=== PATIENT | male | born 1955 | race Caucasian/White ===

== ENCOUNTER → 2016-12-02 | Outpatient (CLI) | payer MEDICARE, OTHER ==
[~2016-12-02] MED LIST: ACETAMINOPHEN; ACETAZOLAMIDE250 MG PO; ACID REDUCER20 MG PO; AKWA TEARS; ALPHAGAN P10 ML OP; ALPHAGAN P10 ML OU; ASACOL400 MG PO; ASPIRIN; ASPIRIN PEG; ASPIRIN PO; ASPIRIN81 M2 PO; ATIVAN PEG; BACTRIM DS TABL1 TAB PO; BONIVA150 MG PO; BRIMONIDINE TAR10 ML OU; CALCIUM + D SO1 EACH PO; CALCIUM CARB; CALCIUM500 M1 PO; CANASA1000 MG/S1; CENTRUM240 ML; CERTA-VITE; CERTAGEN PEG; CLONIDINE; COLACE; COLACE PO; COSOPT EYE DROPS5 ML OP; COSOPT EYE DROPS5 ML OU; DDAVP0.1 MG PO; DDAVP0.2 MG PEG; DEPAKOTE ER; DEPAKOTE PO; DESMOPRESSIN A0.1 M1 PO; DIASTAT ACUDIAL1 KIT; DIASTAT10 MG PR; DIASTAT2.5 MG PR; DOCUSATE LIQUID; ENALAPRIL MALE2.5 MG PO; ENTEX PSE1 CAP.SR .; FERROUS SU220 MG/53 PO; FIBER-STAT15 GM/30 M PO; FLUOCINOLONE AC60 ML; GABAPENTIN300 M2 PO; GENTAK5 M1 OU; GLIPIZIDE ER2.5 MG PO; GLUCAGEN1 MG SUBQ; GLUCAGEN1 MG/KIT SUBQ; GLUCAGON W/DILUE1 MG IM; GLUCOTROL GT; HIBICLENS 4% L120 ML; HYTRIN; KEFLEX PO; KEPPRA; KEPPRA500 M2 PO; KEPPRA750 MG; KEPPRA750 MG PEG; KEPPRA750 MG PO; LANTUS100 U/ML; LANTUS100 U/ML INJ; LANTUS100 U/ML SQ; LANTUS100 U/ML SUBQ; LANTUS100 UNITS/ SUBQ; LATANOPROST2.5 ML OU; LEVAQUIN GT; LEVOTHYROXINE100 MCG PO; LISINOPRIL PO; LOVASTATIN20 M2 PO; LUBRIFRESH PM OP; MAGIC BUTT CR; METFORMIN PO; MIRALAX17 GM DOB; MIRALAX17 GM PO; MIRALAX255 GM PO; MYLANTA400 MG PEG; NIZORAL120 ML; NOVOLIN R SUBQ; NOVOLIN R100 UNITS/; NOVOLOG100 U/ML SUBQ; OMEGA 3 FISH OI1 CAP PO; PAXIL; PENTASA250 MG PO; PEPCID PO; PERIDEX480 ML PO; PREVACID PEG; PREVACID PO; PRILOSEC; ROWEEPRA500 MG PO; SENNA8.6 M1 PO; SENNA8.8 MG/5 M GT; SILACE60 MG/15 M PO; SYNTHROID; SYNTHROID PEG; SYNTHROID PO; TEARS AGAIN OU; THERA; THERAPEUTIC SH177 ML TOP; TIMOPTIC5 ML OU; TOBRADEX EYE DRO5 ML AD; TRIDESILON 0.0515 G2 TOP; TRIPLE ANTIBI1 UDPK1 TP; TRIPLE ANTIBIO1 EACH TOP; UTI-STAT L3875 MG/31 PO; VASOTEC2.5 MG DOB; VITAMIN C PEG; VITAMIN D1000 UNI1 PO; VITAMIN D31000 UNIT PO; XALATAN OP; ZOSYN IV; ZYRTEC; ZYVOX PO; [UNRECOGNIZED DRUG - OTHER] OU; [UNRECOGNIZED DRUG - OTHER] TP
--- NOTE | ~2016-12-02 | CT57 ---
[facility] A Service of [facility] RADIOLOGY TEXT RESULTS PATIENT: PRABHU AGEE LOCATION: [facility] : 53 UNIT #: [id number] AGE: [address]: SHARONA BALLARD SEX: M ORDER DR: [id number] [facility] [address] [place], [place] [address] [id number] O MR#: [id number] [facility] #: [id number] NAME: PRABHU AGEE : 1955 SEX: M STUDY DATE/TIME: 12/02/2016 14:02 [facility] RO[facility]: STUDY DESCRIPTION: CT Chest Wo Cont Attending Physician: Sharona Ballard Referring Physician: Sharona Ballard Ordering Physician: Harlan Leigh Sr., M.D. Primary Care Physician: Harlan Leigh Sr., M.D. MEDICAL IMAGING REPORT This report is preliminary unless electronic signature is present EXAM CT chest without contrast, 12/02/2016 HISTORY Right chest mass. Hypertension. Dizziness. COMPARISON No prior CT chest for comparison at this institution. PROCEDURE 5 mL axial images from the thoracic inlet through the upper abdomen without contrast. Sagittal and coronal reformatted images were obtained. TECHNIQUE This CT exam was performed with one or more of the following radiation dose reduction techniques: automatic exposure control, adjustment of mA and/or kV according to patient size, and iterative reconstruction. FINDINGS An oval low density lesion is demonstrated within the right pectoral musculature. It lies anterior to the level of the right third rib. This lesion appears predominantly fluid density, and measures 7.4 cm craniocaudal x 4.1 cm AP x 6.6 cm transverse dimension. It is entirely nonspecific. It could represent a sterile or infected fluid collection. Necrotic mass lesion cannot be excluded. Bilateral gynecomastia changes are present. No axillary, supraclavicular, mediastinal or hilar adenopathy is seen. There are no suspicious pulmonary nodules. No lung consolidations. Probable minimal atelectasis in the extreme left lung base. There are benign calcified granulomas changes of the right hilum, right lower lobe and subcarinal regions. Included portions of the upper abdominal organs have an unremarkable STS. [facility] A Service of [facility] RADIOLOGY TEXT RESULTS PATIENT: PRABHU AGEE [id number] 53 UNIT #: [id number] AGE: [address]: SHARONA BALLARD SEX: M ORDER DR: noncontrast appearance. No acute or suspicious-appearing osseous lesions are identified. There are degenerative changes within the spine. IMPRESSION A 7.4 cm x 4.1 cm x 6.6 cm low-density lesion is present within the right chest wall, intimately associated with the pectoral musculature. It lies at the level of the right anterior fourth rib. No osseous abnormality is identified. It is unclear whether this represents benign or malignant etiology. It could represent a necrotic lesion. Alternatively, it could represent either a sterile or infected fluid collection. Further assessment cannot be made without the benefit of IV contrast. It would be easily amendable to ultrasound-guided aspiration or CT-guided aspiration if it would aid in clinical management. Dictated by... Alicia Rayo M.D. THIS IS AN ELECTRONICALLY VERIFIED REPORT Alicia Rayo M.D. at 12/03/2016 2:40 PM STEVE/ish TD: 12/02/2016 21:25 JOB #: [id number] MEDICAL IMAGING REPORT COPY
== END | disposition home or self-care (01) ==
LOC: CCAT 13:09
DX: R22.2 Localized swelling, mass and lump, trunk (principal)
CPT/HCPCS: 71250

== ENCOUNTER → 2016-12-15 | Outpatient (CLI) | payer MEDICARE, OTHER ==
--- NOTE | ~2016-12-15 | US19 ---
[facility] A Service of [facility] RADIOLOGY TEXT RESULTS PATIENT: PRABHU AGEE LOCATION: [facility] : 53 UNIT #: [id number] AGE: [address]: Seferino Ramirez MD SEX: M ORDER DR: [id number] [facility] [place], [place] [address] [id number] O MR#: [id number] Acc #: [id number] NAME: PRABHU AGEE : 1955 SEX: M STUDY DATE/TIME: 12/15/2016 11:09 UNIT: [facility] ROOM: STUDY DESCRIPTION: US Breast Cyst Aspiiration W I Attending Physician: Seferino Ramirez M.D. Referring Physician: Seferino Ramirez M.D. Ordering Physician: Seferino Ramirez M.D. Primary Care Physician: Cheryl Rutherford Aprn MEDICAL IMAGING REPORT This report is preliminary unless electronic signature is present EXAM Ultrasound guided aspiration of a fluid collection in the right breast 12/15/2016 INDICATIONS 61-year-old male who had a chest CT 12/02/2016 demonstrating a fluid collection intimately associated with the right breast. Ultrasound guided cyst aspiration requested for further assessment. FINDINGS The patient's prior CT scan was reviewed. Survey images here in the department confirm the presence of the fluid collection. It was adequately visualized to proceed. Informed consent had been previously obtained from the patient's brother given the patients diminished functional status and inability to provide informed consent independently. The consent form was signed on the chart prior to the procedure. Prior to the procedure a "time-out" protocol was also performed to document patient identity and procedure details. The right breast was prepped and draped in the usual sterile fashion. Maximum sterile-barrier technique appropriate for procedure guidelines was utilized. This included the use of sterile gloves, sterile instruments, and sterile barriers. Local anesthesia was achieved about 4 mL of buffered 1% Lidocaine solution. Thereafter, using ultrasound guidance, an 18-gauge needle was advanced to the margin of the fluid collection. Appropriate new location was documented with ultrasound throughout and images demonstrating appropriate needle placement were saved to the PACS system. Upon entering the fluid collection that measured about 5 x 2.2 x 4.7 cm there was prompt return of thin dark reddish/purple fluid. Approximately 10 mL of fluid was aspirated. The collection was smaller but did not completely resolve. It appeared to have septations within it. At this point an 18-gauge spinal needle was inserted through the same skin entrance site. Appropriate location was documented with ultrasound and [facility] A Service of [facility] RADIOLOGY TEXT RESULTS PATIENT: PRABHU AGEE LOCATION: [facility] : 53 UNIT #: [id number] AGE: [address]: Seferino Ramirez MD SEX: M ORDER DR: images demonstrating appropriate needle placement were saved to the PACS system. The spinal needle was seen to be within the remaining complicated fluid but no additional fluid could be aspirated. At this point the needle was removed and the procedure was concluded. The fluid will be forwarded to the laboratory for further analysis according to the primary care team orders. There were no immediate post procedure complications and the patient tolerated the procedure well. Please see the final cytopathology and laboratory report for further details. IMPRESSION Successful ultrasound-guided aspiration of a complicated cystic mass in the right breast measuring 5.1 x 4.7 x 2.2 cm. About 10 mL of reddish/purple fluid was aspirated and sent to the laboratory for analysis according to the ordering physician orders. No immediate post procedure complications. Please see the final cytology and laboratory report for further details. BIRADS: 4 Suspicious abnormality; biopsy should be considered. Dictated by... Sandeep Baird M.D. THIS IS AN ELECTRONICALLY VERIFIED REPORT Sandeep Baird M.D. at 12/16/2016 10:24 AM Jovan TD: 12/16/2016 08:40 JOB #: [id number] MEDICAL IMAGING REPORT COPY
== END | disposition home or self-care (01) ==
LOC: CWCC 10:22
DX: N60.01 Solitary cyst of right breast (principal)
CPT/HCPCS: 76942; 87070; 87205; 88108; 88305

== ENCOUNTER → 2016-12-21 | Outpatient (CLI) | payer MEDICARE, OTHER ==
--- NOTE | ~2016-12-21 | US5 ---
[facility] A Service of [facility] RADIOLOGY TEXT RESULTS PATIENT: PRABHU AGEE LOCATION: [facility] : 53 UNIT #: [id number] AGE: [address]: Harlan Leigh MD SEX: M ORDER DR: [id number] [facility] [address] [place], [place] [address] [id number] O MR#: [id number] Acc #: [id number] NAME: PRABHU AGEE : 1955 SEX: M STUDY DATE/TIME: 12/21/2016 10:54 UNIT: [facility] ROOM: STUDY DESCRIPTION: US Abdominal Complete Attending Physician: Harlan Leigh Sr., M.D. Referring Physician: Harlan Leigh Sr., M.D. Ordering Physician: Harlan Leigh Sr., M.D. Primary Care Physician: Harlan Leigh Sr., M.D. MEDICAL IMAGING REPORT This report is preliminary unless electronic signature is present EXAM Abdominal ultrasound INDICATIONS Abdominal distension and swelling for the past several months. PROCEDURE Davies-scale and Doppler imaging of the abdomen COMPARISON 12/29/2012 FINDINGS Left kidney measures 8.8 cm. The spleen measures 10.5 cm. Pancreas obscured by bowel gas and not seen. Unremarkable gallbladder. Liver measures 15.2 cm. Common duct measures 3-4 mm. No liver mass is seen by ultrasound. Inferior vena cava is patent. Proximal aorta unremarkable. Mid and distal segments are not seen. IMPRESSION Pancreas in the lwi-by-wdeqwa abdominal aorta are not seen on this study. Otherwise negative abdominal ultrasound with no definite acute findings. Dictated by... Nolna Anton M.D. THIS IS AN ELECTRONICALLY VERIFIED REPORT Nolan Anton M.D. at 12/22/2016 10:02 AM EED/to TD: 12/21/2016 16:18 JOB #: [id number] [facility] A Service of [facility] RADIOLOGY TEXT RESULTS PATIENT: PRABHU AGEE LOCATION: [facility] #: [id number] : 53 UNIT #: [id number] AGE: [address]: Harlan Leigh MD SEX: M ORDER DR: MEDICAL IMAGING REPORT Page 1 of 1 COPY
== END | disposition home or self-care (01) ==
LOC: CGUS 09:57
DX: R60.9 Edema, unspecified (principal)
CPT/HCPCS: 76700

== ENCOUNTER → 2016-12-30 | Outpatient (CLI) | payer MEDICARE, OTHER | END | disposition home or self-care (01) | LOC: CECH 13:51 | DX: R60.0 Localized edema (principal) | CPT/HCPCS: 93306 ==

== ENCOUNTER → 2017-01-20 | Outpatient (CLI) | payer MEDICARE, OTHER | END | disposition home or self-care (01) | LOC: CSSDAY 13:00 | DX: M81.0 Age-related osteoporosis without current pathological fracture (principal) | CPT/HCPCS: 96372; J0897 ==

== ENCOUNTER → 2017-02-12 | Outpatient (CLI) | payer MEDICARE, OTHER ==
--- NOTE | ~2017-02-12 | CT57 ---
[facility] A Service of [facility] RADIOLOGY TEXT RESULTS PATIENT: PRABHU AGEE LOCATION: [facility] : 53 UNIT #: [id number] AGE: [address]: Ever Melo MD SEX: M ORDER DR: [id number] [facility]. [place], [place] [address] [id number] O MR#: [id number] [facility] #: [id number] NAME: PRABHU AGEE : 1955 SEX: M STUDY DATE/TIME: 02/12/2017 10:00 UNIT: [facility] ROOM: STUDY DESCRIPTION: CT Chest Wo Cont Attending Physician: Ever Melo M.D. Referring Physician: Ever Melo M.D. Ordering Physician: Ever Melo M.D. Primary Care Physician: Cheryl Rutherford Aprn MEDICAL IMAGING REPORT This report is preliminary unless electronic signature is present EXAM CT chest, without contrast. HISTORY Right breast mass. This was initially noted in December 2016. Patient subsequently underwent an aspiration. This is a follow-up study. TECHNIQUE Axial CT images were obtained from the thoracic inlet through the dome of the diaphragm. No intravenous contrast material was administered. This CT exam was performed with one or more of the following radiation dose reduction techniques: automatic exposure control, adjustment of mA and/or kV according to patient size, and iterative reconstruction. FINDINGS Previously identified right breast cyst is no longer identified. Patient does have bilateral gynecomastia, right greater than left. The thyroid gland and trachea appear within normal limits. There is a small hiatal hernia. There is no pleural or pericardial effusion. Mediastinal lymph nodes do not appear pathologically enlarged. Patient has 5-mm nodule seen within the right lower lobe, adjacent to the fissure. This was also present on the prior exam from December, and is favored to be benign. No additional pulmonary nodules or masses are seen. Images through the upper abdomen do not demonstrate any acute abnormalities. Review of bony windows demonstrates discogenic degenerative disease. No aggressive osseous abnormalities are seen. IMPRESSION 1. Previously identified right breast mass has been aspirated. I really STS. [facility] A Service of [facility] RADIOLOGY TEXT RESULTS PATIENT: PRABHU AGEE LOCATION: [facility] : 53 UNIT #: [id number] AGE: [address]: Ever Melo MD SEX: M ORDER DR: do not see any residual fluid in this area. The patient is noted to have bilateral gynecomastia, right greater than left. 2. Small hiatal hernia. 3. 5-mm noncalcified pulmonary nodule seen within the right lower lobe, unchanged when compared to the December exam. It is favored to be benign. Dictated by... Opal Bonner M.D. THIS IS AN ELECTRONICALLY VERIFIED REPORT Opal Bonner M.D. at 02/12/2017 4:11 PM KARO/lydia TD: 02/12/2017 13:14 JOB #: [id number] MEDICAL IMAGING REPORT Page 1 of 1 COPY
== END | disposition home or self-care (01) ==
LOC: CCAT 02-09 09:40
DX: N63 Unspecified lump in breast (principal); R91.1 Solitary pulmonary nodule; K44.9 Diaphragmatic hernia without obstruction or gangrene
CPT/HCPCS: 71250

== ENCOUNTER 2017-05-25 08:37 | Inpatient (IN) | payer MEDICARE, OTHER ==
--- NOTE | ~2017-05-25 | CR72 ---
[facility] A Service of [facility] RADIOLOGY TEXT RESULTS PATIENT: PRABHU AGEE LOCATION: [facility]- : 53 UNIT #: [id number] AGE: [address]: Mei Rios MD SEX: M ORDER DR: [id number] [facility] [address] [place], [place] [address] [id number] I MR#: [id number] Acc #: [id number] NAME: PRABHU AGEE. : 1955 SEX: M STUDY DATE/TIME: 05/28/2017 5:52 UNIT: [address] ROOM: [facility] STUDY DESCRIPTION: CR Chest Single View Portable Attending Physician: Mei Rios M.D. Ordering Physician: Graeme Wilcox M.D. Primary Care Physician: Cheryl Rutherford Aprn MEDICAL IMAGING REPORT This report is preliminary unless electronic signature is present EXAM Single view chest INDICATIONS Shortness of air and fever. 3-day duration. COMPARISON STUDIES Single portable AP view of the chest compared to 05/25/2017. FINDINGS Heart mediastinal contours are unchanged. No new pulmonary opacities. No pneumothorax or pleural effusion. IMPRESSION No acute cardiopulmonary findings. No interval change Dictated by... Néstor You M.D. THIS IS AN ELECTRONICALLY VERIFIED REPORT Néstor You M.D. at 05/28/2017 2:52 PM LIZZY/alexy TD: 05/28/2017 14:39 JOB #: [id number] MEDICAL IMAGING REPORT Page 1 of 1 COPY
--- NOTE | ~2017-05-25 | CO ---
Unit #: [id number] #: [id number] Patient: PRABHU MACIAS [id number] [address] [place], [place] [address] [id number] I MR#: [id number] NAME: PRABHU MACIAS. ROOM: 318 Age: 62 Sex: M Admission Date: 05/25/2017 : 1955 Attending Physician: Mei Rios M.D. Primary Care Physician: Cheryl Rutherford Aprn Consultation Date: 05/25/2017 CONSULTATION REPORT REASON FOR CONSULTATION Possible pneumonia. HISTORY OF PRESENT ILLNESS Mr. Macias is a 62-year-old gentleman with profound mental retardation, who resides at [facility]. He apparently had fever and was sent to the emergency room for possible sepsis. Chest x-ray was fairly unremarkable. Strep screen was positive. He currently has saturations which were adequate in the high 90s on room air. He is nonverbal and cannot add to the history. PAST MEDICAL HISTORY Remarkable for profound mental retardation, seizure disorder, diabetes, hypothyroidism, arthritis. He has had a previous MRSA infection, details unclear. MEDICATIONS Per med rec sheet. Lovastatin, Glucophage, MiraLAX, Pentasa, senna, iron, gabapentin, glipizide, Roweepra, Synthroid, calcium, desmopressin, enalapril, Pepcid, insulin, variety of vitamins and eye drops. ALLERGIES Nitrofurantoin, Flagyl, vancomycin, and Reglan. SOCIAL HISTORY Resides at [facility]. FAMILY HISTORY Unobtainable. REVIEW OF SYSTEMS Unobtainable. PHYSICAL EXAMINATION GENERAL: Reveals a patient, who is sitting in the ER in a gurney, in no acute distress. VITAL SIGNS: He is afebrile. Pulse 99, respiratory rate is 20, blood pressure is 130/72. HEENT: Pupils are equal, round, and reactive to light. Sclerae anicteric. Head atraumatic. NECK: Supple. No supraclavicular or cervical adenopathy appreciated. He did not allow good oral exam. CHEST: Equal breath sounds. No wheeze, stridor, or consolidation. Unit #: [id number] #: [id number] Patient: PRABHU MACIAS CARDIAC: Reveals regular rate and rhythm. ABDOMEN: Soft and nontender. EXTREMITIES: Contracted. No definite clubbing, cyanosis, or edema. SKIN: Warm and dry without rash or diaphoresis. PSYCHIATRIC: He is in no distress on room air. DIAGNOSTIC STUDIES LABORATORY RESULTS: BUN 9, creatinine 0.5. White blood cell count is normal at 8.9, hemoglobin 12.2. Strep screen is positive. Urinalysis unremarkable. Blood cultures performed and are pending. IMAGING STUDIES: Chest x-ray; to my review, no acute infiltrates. CARDIOVASCULAR STUDIES: I do not see any EKG. IMPRESSION 1. Strep throat. No definite evidence of pneumonia. 2. Mental retardation with poor database. 3. Multiple medical problems listed above. PLAN I doubt pneumonia. We will continue Rocephin, but discontinue Zyvox and monitor clinically. Thank you very much for allowing me to participate in the care of Mr. Macias. Dictated by... Rayo Sahu M.D. MY/charlene TD: 05/25/2017 17:18 JOB #: [id number] CONSULTATION REPORT Page 1 of 1 X Rayo Sahu MD CONSULTATION REPORT
--- NOTE | ~2017-05-25 | CR72 ---
[facility] A Service of [facility] RADIOLOGY TEXT RESULTS PATIENT: PRABHU AGEE LOCATION: [facility] : 53 UNIT #: [id number] AGE: [address]: Mei Rios MD SEX: M ORDER DR: [id number] [facility] [address]. [place], [place] [address] [id number] I MR#: [id number] Acc #: [id number] NAME: PRABHU AGEE. : 1955 SEX: M STUDY DATE/TIME: [facility] [id number] STUDY DESCRIPTION: CR Chest Single View Portable Attending Physician: Mei Rios M.D. Ordering Physician: Raúl Castro M.D. Primary Care Physician: Cheryl Rutherford Aprn MEDICAL IMAGING REPORT This report is preliminary unless electronic signature is present EXAM Chest portable 05/25/2017 0943 hours CLINICAL HISTORY 62-year-old patient from the [facility]. Facility reports fever and tachycardia this morning. History of diabetes, hypertension, and MRSA infection. COMPARISON CT chest 02/12/2017 and portable chest exam 09/01/2008. FINDINGS Portable upright chest demonstrates low lung volumes. Plate and screw fixators are present in the lower cervical spine. Heart size is within normal limits. There is perihilar and basilar vascular crowding. No definite pneumonia, edema, or effusion seen. IMPRESSION Low lung volume film with perihilar and basilar vascular crowding. No definite pneumonia, edema, or effusion. Dictated by... Courtney Hernandez M.D. THIS IS AN ELECTRONICALLY VERIFIED REPORT Courtney Hernandez M.D. at 05/25/2017 2:35 PM JOSE/judie TD: 05/25/2017 14:12 JOB #: [id number] MEDICAL IMAGING REPORT [facility] A Service [facility] RADIOLOGY TEXT RESULTS PATIENT: PRABHU GAEE LOCATION: [facility] : 53 UNIT #: [id number] AGE: [address]: Mei Rios MD SEX: M ORDER DR: Page 1 of 1 COPY
--- NOTE | ~2017-05-25 | DS ---
Unit #: [id number] #: [id number] Patient: PRABHU AGEE [id number] [address] [address] [id number] I MR#: [id number] NAME: PRABHU AGEE ROOM: 318 Age: 62 Sex: M Admission Date: 05/25/2017 : 1955 Discharge Date: 05/28/2017 Attending Physician: Mei Rios M.D. Primary Care Physician: Cheryl Rutherford, Mandeep DISCHARGE SUMMARY REVISED REPORT DISCHARGE DIAGNOSES 1. Streptococcal pharyngitis. 2. History of mental retardation. 3. History of seizure disorder. 4. Dysphagia. 5. Diabetes type 2. DISCHARGE MEDICATIONS 1. Augmentin 875 p.o. b.i.d. for five days. 2. Diastat 10 mg per rectum p.r.n. for seizures lasting more than three minutes. 3. Vitamin D 1000 units p.o. daily. 4. Synthroid 100 mcg daily. 5. Desmopressin 0.1 mg Wednesday, Wednesday, Wednesday, Wednesday p.o. 6. UTI-Stat liquid 30 mL p.o. b.i.d. 7. Hibiclens with the tooth brushing. 8. Pentasa 500 mg p.o. b.i.d. 9. Pepcid 20 mg b.i.d. 10. Artificial tears drops at bedtime. 11. Brimonidine eye drops b.i.d. 12. Ferrous sulfate 7.4 mL p.o. daily. 13. Sliding scale insulin. 14. Levemir 10 units subcutaneous q.a.m. 15. Lovastatin 20 mg at bedtime. 16. Xalatan eye drops at bedtime. 17. Therapeutic shampoo. 18. Senokot 8.6 mg p.o. daily. 19. MiraLax one packet daily. 20. Fiber-Stat 30 mL p.o. daily. 21. Docusate 5 mL p.o. daily. 22. Timolol eye drops b.i.d. 23. Enalapril 2.5 mg p.o. b.i.d. Hold for systolic BP less than 100 or diastolic BP less than 60. 24. Nizoral shampoo. 25. Glucophage 500 mg p.o. b.i.d. 26. Glucagon p.r.n. subcutaneous for blood glucose less than 50. 27. Keppra 1000 mg p.o. b.i.d. 28. Gabapentin 300 mg b.i.d. 29. Triple antibiotic ointment topically daily p.r.n. 30. TobraDex eye drops b.i.d. 31. Fluocinolone to the scalp and ears daily at bedtime. 32. Tridesilon cream topically b.i.d. Unit #: [id number] #: [id number] Patient: PRABHU AGEE 33. Calcium 1000 mg p.o. b.i.d. 34. Tylenol p.r.n. DISPOSITION Going back to correction. CONSULT DURING HOSPITAL STAY Pulmonary, Dr. Sahu. LABS, DIAGNOSTICS, AND PROCEDURES DURING HOSPITAL STAY 1. Chest x-ray: Low-lung volumes. No definite pneumonia. Repeat chest x-ray unremarkable. 2. Blood culture negative. 3. Rapid strep apparently was positive. HISTORY OF PRESENT HOSPITAL STAY Please refer to H and P done by my colleague for initial presentation on this gentleman. ACTIVE PROBLEMS AND DIAGNOSES 1. Hypertension with fever: Apparently tested positive for strep. Patient was treated with Rocephin. Discharge date BP 98/63. No signs of active sepsis. Blood culture negative to date. Pneumonia had been ruled out per pulmonary. Stable to be discharged. 2. History of mental retardation. 3. History of seizure disorder: Continue p.r.n. Diastat. 4. Diabetes: Continue home meds. See discharge meds. DISPOSITION Back to correction at [facility]. FOLLOWUP 1. Followup with primary care, Dr. Blanca damon. 2. Outpatient followup with pulmonary. Dictated by... Gil Paez/vamsi TD: 05/29/2017 08:42 JOB #: [id number] DISCHARGE SUMMARY Page 1 of 1 X Moshe De Jesus MD X DISCHARGE SUMMARY
[~2017-05-25 08:37] MED LIST changes: -ACID REDUCER20 MG PO; -BRIMONIDINE TAR10 ML OU; -CALCIUM500 M1 PO; -DESMOPRESSIN A0.1 M1 PO; -DIASTAT2.5 MG PR; -ENALAPRIL MALE2.5 MG PO; -FERROUS SU220 MG/53 PO; -FIBER-STAT15 GM/30 M PO; -FLUOCINOLONE AC60 ML; -GABAPENTIN300 M2 PO; -GLIPIZIDE ER2.5 MG PO; -GLUCAGEN1 MG SUBQ; -HIBICLENS 4% L120 ML; -LANTUS100 U/ML SUBQ; -LANTUS100 UNITS/ SUBQ; -LATANOPROST2.5 ML OU; -LEVOTHYROXINE100 MCG PO; -LOVASTATIN20 M2 PO; -MAGIC BUTT CR; -METFORMIN PO; -MIRALAX17 GM PO; -NIZORAL120 ML; -NOVOLIN R100 UNITS/; -ROWEEPRA500 MG PO; -SENNA8.6 M1 PO; -SILACE60 MG/15 M PO; -THERAPEUTIC SH177 ML TOP; -TIMOPTIC5 ML OU; -TOBRADEX EYE DRO5 ML AD; -TRIDESILON 0.0515 G2 TOP; -TRIPLE ANTIBIO1 EACH TOP; -UTI-STAT L3875 MG/31 PO; -VITAMIN D31000 UNIT PO; -[UNRECOGNIZED DRUG - OTHER] OU
[2017-05-25] MEDS ORDERED: UTI-STAT L3875 MG/31 PO (09:50)
[2017-05-25] MEDS ORDERED: FIBER-STAT15 GM/30 M PO (09:50)
[2017-05-25] MEDS ORDERED: NOVOLIN R100 UNITS/ (09:50)
[2017-05-25] MEDS ORDERED: LANTUS100 UNITS/ SUBQ (09:51)
[2017-05-25] MEDS ORDERED: LANTUS100 U/ML SUBQ (09:51)
[2017-05-25] MEDS ORDERED: HIBICLENS 4% L120 ML (09:52)
[2017-05-25] MEDS ORDERED: CALCIUM500 M1 PO (09:52)
[2017-05-25] MEDS ORDERED: ENALAPRIL MALE2.5 MG PO (09:53)
[2017-05-25] MEDS ORDERED: DESMOPRESSIN A0.1 M1 PO (09:53)
[2017-05-25] MEDS ORDERED: FERROUS SU220 MG/53 PO (09:54)
[2017-05-25] MEDS ORDERED: ACID REDUCER20 MG PO (09:54)
[2017-05-25] MEDS ORDERED: GABAPENTIN300 M2 PO (09:54)
[2017-05-25] MEDS ORDERED: GLIPIZIDE ER2.5 MG PO (09:54)
[2017-05-25] MEDS ORDERED: ROWEEPRA500 MG PO (09:55)
[2017-05-25] MEDS ORDERED: LEVOTHYROXINE100 MCG PO (09:55)
[2017-05-25] MEDS ORDERED: METFORMIN PO (09:56)
[2017-05-25] MEDS ORDERED: MIRALAX17 GM PO (09:56)
[2017-05-25] MEDS ORDERED: LOVASTATIN20 M2 PO (09:56)
[2017-05-25] MEDS ORDERED: PENTASA250 MG PO (09:56)
[2017-05-25] MEDS ORDERED: SENNA8.6 M1 PO (09:57)
[2017-05-25] MEDS ORDERED: SILACE60 MG/15 M PO (09:57)
[2017-05-25] MEDS ORDERED: VITAMIN D31000 UNIT PO (09:57)
[2017-05-25 09:59] LABS: BASOPHIL% 0.2 % (0-2.5); EOSINOPHIL# 0.1 X10e3 (0-0.7); EOSINOPHIL% 0.6 % (0.0-7.0); HEMATOCRIT 35.9 % (38.0-50.0); HEMOGLOBIN 12.2 gm/dL (13.0-16.0); LYMPHOCYTE# 0.8 X10e3 (1.0-3.5); LYMPHOCYTE% 9.3 % (17.0-45.0); MEAN CELL VOLUME 85.9 FL (83-96); MEAN CORPUSCULAR HEMOGLOBIN 29.3 PG (28-34); MEAN CORPUSCULAR HGB CONC 34.1 g/dL (30-36); MONOCYTE# 0.6 X10e3 (0-1.0); MONOCYTE% 6.2 % (3.0-12.0); NEUTROPHIL# 7.5 X10e3 (1.5-7.1); NEUTROPHIL% 83.7 % (40-75); PLATELET COUNT 166 X10e3 (140-420); RED BLOOD COUNT 4.17 X10e (3.90-5.60); RED CELL DISTRIBUTION WIDTH 14.1 % (11.0-15.5); WHITE BLOOD COUNT 8.9 X10e3 (4.0-10.5)
[2017-05-25] MEDS ORDERED: MAGIC BUTT CR (09:59)
[2017-05-25] MEDS ORDERED: TOBRADEX EYE DRO5 ML AD (10:00)
[2017-05-25 10:01] LABS: DIFF IND NO
[2017-05-25] MEDS ORDERED: BRIMONIDINE TAR10 ML OU (10:01)
[2017-05-25] MEDS ORDERED: [UNRECOGNIZED DRUG - OTHER] OU (10:01)
[2017-05-25] MEDS ORDERED: FLUOCINOLONE AC60 ML (10:02)
[2017-05-25] MEDS ORDERED: NIZORAL120 ML (10:02)
[2017-05-25] MEDS ORDERED: LATANOPROST2.5 ML OU (10:02)
[2017-05-25] MEDS ORDERED: THERAPEUTIC SH177 ML TOP (10:03)
[2017-05-25] MEDS ORDERED: TIMOPTIC5 ML OU (10:03)
[2017-05-25] MEDS ORDERED: DIASTAT2.5 MG PR (10:04)
[2017-05-25] MEDS ORDERED: TRIDESILON 0.0515 G2 TOP (10:04)
[2017-05-25] MEDS ORDERED: GLUCAGEN1 MG SUBQ (10:06)
[2017-05-25] MEDS ORDERED: TRIPLE ANTIBIO1 EACH TOP (10:06)
[2017-05-25 10:15] LABS: URINE SOURCE CLEAN CATCH
[2017-05-25 10:30] LABS: URINE APPEARANCE CLEAR; URINE BILIRUBIN NEG (NEG); URINE BLOOD NEG (NEG); URINE COLOR YELLOW; URINE GLUCOSE NEG (NEG); URINE KETONE NEG (NEG); URINE LEUKOCYTE ESTERASE NEG (NEG); URINE NITRATE NEG (NEG); URINE PH 7.5 (5-8); URINE PROTEIN NEG (NEG); URINE SPECIFIC GRAVITY 1.009 (1.003-1.035); URINE UROBILINOGEN 0.2 MG/DL (NEG)
[2017-05-25 10:34] LABS: CULTURE INDICATED? NO
[2017-05-25 10:51] LABS: ALBUMIN SERUM 3.4 g/dL (3.5-5.0); BILIRUBIN, DIRECT 0.1 mg/dL (0.0-0.2); BILIRUBIN,INDIRECT 0.5 mg/dL (0.0-0.9); BILIRUBIN,TOTAL 0.6 mg/dL (0.2-2.0); CALCIUM SERUM 8.7 mg/dL (8.4-10.2); CREATININE SERUM 0.5 mg/dL (0.6-1.4); GLOM FILT RATE Estimated 115.4 mL/min (>60); PROTEIN TOTAL SERUM 6.6 g/dL (6.0-8.3)
[2017-05-26 06:03] LABS: HEMATOCRIT 35.5 % (38.0-50.0); HEMOGLOBIN 11.8 gm/dL (13.0-16.0); MEAN CELL VOLUME 87.3 FL (83-96); MEAN CORPUSCULAR HEMOGLOBIN 28.9 PG (28-34); MEAN CORPUSCULAR HGB CONC 33.2 g/dL (30-36); MEAN PLATELET VOLUME 8.2 FL (6.5-11.5); RED BLOOD COUNT 4.07 X10e (3.90-5.60); RED CELL DISTRIBUTION WIDTH 14.9 % (11.0-15.5); WHITE BLOOD COUNT 6.4 X10e3 (4.0-10.5)
[2017-05-26 09:24] LABS: CALCIUM SERUM 8.6 mg/dL (8.4-10.2); CREATININE SERUM 0.4 mg/dL (0.6-1.4); GLOM FILT RATE Estimated 126.5 mL/min (>60); POTASSIUM 3.8 mmol/L (3.5-5.1)
[2017-05-26 22:55] LABS: BUN/CREATININE RATIO 11.66; CALCIUM SERUM 8.1 mg/dL (8.4-10.2); CREATININE SERUM 0.6 mg/dL (0.6-1.4)
[2017-05-27 07:14] LABS: BUN/CREATININE RATIO 11.66; CALCIUM SERUM 7.9 mg/dL (8.4-10.2); CREATININE SERUM 0.6 mg/dL (0.6-1.4); POTASSIUM 3.5 mmol/L (3.5-5.1)
[2017-05-28 05:29] LABS: HEMATOCRIT 35.8 % (38.0-50.0); HEMOGLOBIN 11.8 gm/dL (13.0-16.0); MEAN CELL VOLUME 87.3 FL (83-96); MEAN CORPUSCULAR HEMOGLOBIN 28.9 PG (28-34); MEAN CORPUSCULAR HGB CONC 33.1 g/dL (30-36); MEAN PLATELET VOLUME 7.9 FL (6.5-11.5); RED BLOOD COUNT 4.1 X10e (3.90-5.60); RED CELL DISTRIBUTION WIDTH 15.1 % (11.0-15.5); WHITE BLOOD COUNT 4.8 X10e3 (4.0-10.5)
[2017-05-28 06:29] LABS: CALCIUM SERUM 8.1 mg/dL (8.4-10.2); CREATININE SERUM 0.5 mg/dL (0.6-1.4); GLOM FILT RATE Estimated 115.4 mL/min (>60)
[2017-05-28 19:03] LABS: URINE APPEARANCE CLEAR; URINE BILIRUBIN NEG (NEG); URINE BLOOD 2+ (NEG); URINE COLOR YELLOW; URINE GLUCOSE >1000 MG/DL (NEG); URINE KETONE NEG (NEG); URINE LEUKOCYTE ESTERASE TRACE (NEG); URINE NITRATE NEG (NEG); URINE PH 6.5 (5-8); URINE PROTEIN 2+ (NEG); URINE SPECIFIC GRAVITY 1.015 (1.003-1.035); URINE UROBILINOGEN 0.2 MG/DL (NEG)
[2017-05-28 19:21] LABS: URBCS1 AUWI 200-300 /[HPF] (0-2); URINE BACTERIA AUWI NEG (NEGATIVE); URINE SQUAMOUS EPITHELIAL CELL NONE SEEN /[HPF]
== END 2017-05-29 12:32 | DRG 153 ==
LOC: CED 08:37 → C3A PCU 12:45 → CEDOF 12:45 → CED 13:07 → C3A PCU 19:44 → CEDOF 19:44 → C3A PCU 19:44
PROVIDERS: Hospitalist; Internal Medicine; Nurse Practitioner; Physician Assistant Medical
DX: J02.0 Streptococcal pharyngitis (principal); E87.0 Hyperosmolality and hypernatremia; F73 Profound intellectual disabilities; G40.909 Epilepsy, unspecified, not intractable, without status epilepticus; E11.9 Type 2 diabetes mellitus without complications; Z79.84 Long term (current) use of oral hypoglycemic drugs; E03.9 Hypothyroidism, unspecified; M19.90 Unspecified osteoarthritis, unspecified site; R13.10 Dysphagia, unspecified; I10 Essential (primary) hypertension
CPT/HCPCS: 36415; 51701; 71010; 80048; 80076; 81003; 82947; 83605; 85025; 85027; 87040; 87086; 87880; 96365; 96367; 99285; C9113; J0696; J1650; J1815; J2020

== ENCOUNTER → 2017-06-24 | Outpatient (CLI) | payer MEDICARE, OTHER ==
[~2017-06-24] MED LIST changes: +ACID REDUCER20 MG PO; +BRIMONIDINE TAR10 ML OU; +CALCIUM500 M1 PO; +DESMOPRESSIN A0.1 M1 PO; +DIASTAT2.5 MG PR; +ENALAPRIL MALE2.5 MG PO; +FERROUS SU220 MG/53 PO; +FIBER-STAT15 GM/30 M PO; +FLUOCINOLONE AC60 ML; +GABAPENTIN300 M2 PO; +GLIPIZIDE ER2.5 MG PO; +GLUCAGEN1 MG SUBQ; +HIBICLENS 4% L120 ML; +LANTUS100 U/ML SUBQ; +LANTUS100 UNITS/ SUBQ; +LATANOPROST2.5 ML OU; +LEVOTHYROXINE100 MCG PO; +LOVASTATIN20 M2 PO; +MAGIC BUTT CR; +METFORMIN PO; +MIRALAX17 GM PO; +NIZORAL120 ML; +NOVOLIN R100 UNITS/; +ROWEEPRA500 MG PO; +SENNA8.6 M1 PO; +SILACE60 MG/15 M PO; +THERAPEUTIC SH177 ML TOP; +TIMOPTIC5 ML OU; +TOBRADEX EYE DRO5 ML AD; +TRIDESILON 0.0515 G2 TOP; +TRIPLE ANTIBIO1 EACH TOP; +UTI-STAT L3875 MG/31 PO; +VITAMIN D31000 UNIT PO; +[UNRECOGNIZED DRUG - OTHER] OU
--- NOTE | ~2017-06-24 | CT57 ---
[facility] A Service of [facility] RADIOLOGY TEXT RESULTS PATIENT: PRABHU AGEE LOCATION: [facility] : 53 UNIT #: [id number] AGE: [address]: SHARONA BALLARD SEX: M ORDER DR: [id number] [facility] [address] [place], [place] [address] [id number] O MR#: [id number] Acc #: [id number] NAME: PRABHU AGEE : 1955 SEX: M STUDY DATE/TIME: 06/24/2017 13:30 UNIT: [facility] ROOM: STUDY DESCRIPTION: CT Chest Wo Cont Attending Physician: Sharona Ballard M.D. Referring Physician: Sharona Ballard M.D. Primary Care Physician: Harlan Leigh Sr., M.D. MEDICAL IMAGING REPORT This report is preliminary unless electronic signature is present EXAM CT of the chest without contrast. INDICATION Follow up after aspiration of fluid for a mass in the right chest wall. TECHNIQUE CT scan of the chest was performed without contrast. Coronal and sagittal reformatted images were obtained. This CT exam was performed with one or more of the following radiation dose reduction techniques: automatic exposure control, adjustment of mA and/or kV according to patient size, and iterative reconstruction. COMPARISON Comparison is made with 02/12/2017 and 12/02/2016. FINDINGS Previously noted fluid collection within the right chest wall is no longer present. There is a stable appearing gynecomastia bilaterally. There is no suspicious pulmonary nodule. No suspicious lymphadenopathy. No pleural effusion. Limited imaging of the upper and is unremarkable. The bone windows show degenerative changes of the thoracic spine. IMPRESSION 1. Previously noted right chest wall fluid collection has completely resolved. There is no evidence for any mass. 2. Stable bilateral gynecomastia. Dictated by... Baldo Vincent M.D. [facility] A Service of [facility] RADIOLOGY TEXT RESULTS PATIENT: PRABHU AGEE LOCATION: [facility] : 53 UNIT #: [id number] AGE: [address]: SHARONA BALLARD SEX: M ORDER DR: THIS IS AN ELECTRONICALLY VERIFIED REPORT Baldo Vincent M.D. at 06/25/2017 7:18 AM SUZIE/palomo TD: 06/24/2017 20:41 JOB #: [id number] MEDICAL IMAGING REPORT Page 1 of 1 COPY
== END | disposition home or self-care (01) ==
LOC: CCAT 06-10 13:00
DX: N63 Unspecified lump in breast (principal); N62 Hypertrophy of breast
CPT/HCPCS: 71250